=== PATIENT | female | born 1975 | race Caucasian/White ===

== ENCOUNTER 2017-03-02 20:23 | Emergency (ER) | payer OTHER ==
--- NOTE | 2017-03-02 21:07 | ED CLINICAL REPORT ---
Clinical Report - Physicians/Mid Levels [facility] [address] [place] [address] 03/02/2017 20:26 Patient: ROBINSON KENNY Time Seen: 20:54 Mar 02 2017. Arrived- By private vehicle. Historian- patient. HISTORY OF PRESENT ILLNESS Chief Complaint: SORE THROAT. 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 Pain described as mild. No mouth sores, nasal discharge or congestion or ear pain. (patient with a sore throat and mild cough, chills last 7 days. No sick contacts at home. No reported fevers. No nausea or vomiting or emesis. No diff swallowing liquids. Has taken Advil at home.). REVIEW OF SYSTEMS No fever, chest pain, nausea, diarrhea or abdominal pain. No vomiting. She has had a cough. All systems otherwise negative, except as recorded above. PAST HISTORY Problems: UTI - Urinary Tract Infection. Melanocytic nevus of skin. Additional Surgeries: no known surgeries. Medications: None. Allergies: No Known Drug Allergy. SOCIAL HISTORY Never smoker. Alcohol use. No drug use. ADDITIONAL NOTES The nursing notes have been reviewed. PHYSICAL EXAM Vital Signs: 03/02/2017 20:31 BP: 134/86. HR: 75. RR: 18. O2 saturation: 100%. Temp: 97.8 F. Pain level now: 5/10. Appearance: Alert. Head: Normal external inspection. Eyes: Conjunctivae and eyelids normal. ENT: Nose normal. Pharynx normal. Lips normal. Gums normal. No trismus present. Uvula midline. No tonsillar exudate or dental tenderness. Neck: Trachea midline. No adenopathy. No thyromegaly. CVS: Normal heart rate and rhythm. Heart sounds normal. Pulses normal. No cardiac murmur. PMI not displaced laterally. Respiratory: No respiratory distress. Breath sounds normal. Chest nontender. Abdomen: Soft. Skin: Normal skin color. LABS, X-RAYS, AND EKG Laboratory Tests: Culture, Strep Screen: (KAREN: 03/02/2017 20:38) ( MsgRcvd 03/02/2017 21:05) Final results Test Result Flag Units (Reference) RAPID STREP SCREEN - THROAT DATE: 03/02/17 NEGATIVE SCREEN: RAPID STREP SCREEN NEGATIVE; CONFIRMATION TO FOLLOW . PROGRESS AND PROCEDURES Course of Care: Patient with negative rapid strep. Uvula midline, no exudate. No lymphadenopathy. No erythema. Patient to follow up outpatient. Suspect viral etiology. 03/02/2017 21:14 RR: 18. Ricketts-Carrasco pain scale: 2/10. Patient is stable. Patient/family counseled. Disposition: Discharged. CLINICAL IMPRESSION Pharyngitis INSTRUCTIONS Rest. Drink plenty of fluids. (warm salt water rinses culture pending). Prescription Medications: Ibuprofen 600 mg tablets: take 1 tablet orally every 6 hours for 5 days, as needed for pain, swelling or fever. Dispense fifteen (15). No refill. OTC Medications: Tylenol 500 mg (available over the counter): take 1 orally every 6 hours as needed for fever or pain. Dispense fifteen (15). One refill. Substitution is permissible. (Electronically signed by Brittney Aaron P.A.-C 03/02/2017 21:53)
--- NOTE | 2017-03-02 21:07 | ED NURSING NOTES ---
Clinical Report - Nurses [facility] [address] [place] [address] 03/02/2017 20:26 Patient: ROBINSON KENNY TRIAGE Triage time 20:32. Acuity: LEVEL 4. Chief Complaint: SORE THROAT. Alert. ALFONZO COMA SCORE: [place] Coma Scale: 15- eyes open spontaneously (4); best verbal response- oriented x 4 (5); best motor response- obeys commands (6). --20:34 Nikita Melgoza R.N. 20:31 03/02/17. BP: 134/86. HR: 75. RR: 18 (regular and unlabored). O2 saturation: 100% on room air. Temp: 97.8 F (oral). Pain level now: 5/10. --20:34 Nikita Melgoza R.N. Weight: 79.3 kg stated. Height/Length: 69 inches Per Patient. BMI: 25.8. --20:32 Nikita Melgoza R.N. Medications None. --20:31 Nikita Melgoza R.N. Allergies No Known Drug Allergy. --20:31 Nikita Melgoza R.N. History Arrived by private vehicle. Historian: patient. Accompanied by friend. Onset. (1 weeks). SOCIAL HX: Never smoker. Occasional alcohol use. No drug use. ( denies SI/HI). ABUSE ASSESSMENT: No report of abuse. SELF HARM ASSESSMENT: A self harm assessment was performed. The patient answered "no" to the question "Do you have thoughts of harming or killing yourself?" and "Are you here because you tried to hurt yourself?". --20:34 Nikita Melgoza R.N. PROBLEMS: Melanocytic nevus of skin. --20:32 Nikita Melgoza R.N. ADDITIONAL SURGERIES: no known surgeries. Interventions ID band on patient. To treatment room. --20:34 Nikita Melgoza R.N. PHYSICAL ASSESSMENT Ambulatory to room. GENERAL / NEURO / PSYCH: Alert. Oriented X 4. Appears in no acute distress. Does not appear anxious or in distress. HEENT: Pharyngeal erythema. Voice within normal limits. Mucous membranes are pink. RESPIRATORY: Respirations not labored. SKIN: Skin is warm and dry. --20:37 Nikita Melgoza R.N. NURSING PROGRESS NOTES Reassurance given. Two patient identifiers checked. Call light placed in reach. Side rails up x 1. Bed placed in lowest position. Brakes of bed on. Patient ready for evaluation- chart flagged. Patient waiting for evaluation. --20:37 Nikita Melgoza R.N. 21:11 03/02/2017 Dexamethasone (Dexamethasone) PO 8 mg given. Allergies verified and confirmed 5 rights. --21:16 Nikita Melgoza R.N. DISPOSITION / DISCHARGE Departure time: 21:15. Condition at departure: stable. No learning barriers present. Discharge instructions provided and reviewed with the patient. Reviewed warnings. Reviewed medication(s) side effects, precautions, dosing and course information. Prescription(s) given to the patient. Treatments reviewed. Reviewed referrals for followup. Work note given. Patient and review engineer verbalized understanding. Written instructions provided in Wallisian. The patient was discharged home and accompanied by review engineer. She left the Emergency Department ambulatory and via private vehicle. Patient driving. --21:15 Nikita Melgoza R.N. 21:14 03/02/17. RR: 18. Ricketts-Carrasco pain scale: 2/10. --21:15 Nikita Melgoza R.N. 20:31 03/02/17. BP: 134/86. HR: 75. RR: 18 (regular and unlabored). O2 saturation: 100% on room air. Temp: 97.8 F (oral). Pain level now: 10. --21:15 Nikita Melgoza R.N. Locked/Released at 03/02/2017 21:17 by Nikita Melgoza R.N.
--- NOTE | 2017-03-02 21:07 | ED ORDER SUMMARY ---
..... Patient: ROBINSON KENNY OrderSheet [facility] VisitID: [id number] [address] [place] [address] 42y, F Registration Date/Time: 03/02/2017 ORDER SHEET Weight: 79.3 kg (stated) Allergies: No Known Drug Allergy GENERAL ORDERS: Culture, Strep Screen Urgent (20:40 03/02/2017 Lety Hameed.A.-C) (20:41 DDavis R.N.) MEDICATION ORDERS: Dexamethasone PO 8 mg (NOW) (21:06 03/02/2017 Lety Hameed.A.-C) (Ack 21:08 DDavis R.N.) (21:16 DDavis R.N.) IV FLUIDS: ORDER SHEET NOTES: [Electronically signed by Nikita Melgoza R.N. (21:17 03/02/2017)] [Electronically signed by Brittney Aaron P.A.-C (21:53 03/02/2017)] [Electronically locked/signed by Nikita Melgoza R.N. (21:17 03/02/2017)]
--- NOTE | 2017-03-02 21:07 | ED CLINICAL REPORT ---
Clinical Report - Physicians/Mid Levels [facility] [address] [place] [address] 03/02/2017 20:26 Patient: ROBINSON KENYN Time Seen: 20:54 Mar 02 2017. Arrived- By private vehicle. Historian- patient. HISTORY OF PRESENT ILLNESS Chief Complaint: SORE THROAT. 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 Pain described as mild. No mouth sores, nasal discharge or congestion or ear pain. (patient with a sore throat and mild cough, chills last 7 days. No sick contacts at home. No reported fevers. No nausea or vomiting or emesis. No diff swallowing liquids. Has taken Advil at home.). REVIEW OF SYSTEMS No fever, chest pain, nausea, diarrhea or abdominal pain. No vomiting. She has had a cough. All systems otherwise negative, except as recorded above. PAST HISTORY Problems: UTI - Urinary Tract Infection. Melanocytic nevus of skin. Additional Surgeries: no known surgeries. Medications: None. Allergies: No Known Drug Allergy. SOCIAL HISTORY Never smoker. Alcohol use. No drug use. ADDITIONAL NOTES The nursing notes have been reviewed. PHYSICAL EXAM Vital Signs: 03/02/2017 20:31 BP: 134/86. HR: 75. RR: 18. O2 saturation: 100%. Temp: 97.8 F. Pain level now: 5/10. Appearance: Alert. Head: Normal external inspection. Eyes: Conjunctivae and eyelids normal. ENT: Nose normal. Pharynx normal. Lips normal. Gums normal. No trismus present. Uvula midline. No tonsillar exudate or dental tenderness. Neck: Trachea midline. No adenopathy. No thyromegaly. CVS: Normal heart rate and rhythm. Heart sounds normal. Pulses normal. No cardiac murmur. PMI not displaced laterally. Respiratory: No respiratory distress. Breath sounds normal. Chest nontender. Abdomen: Soft. Skin: Normal skin color. LABS, X-RAYS, AND EKG Laboratory Tests: Culture, Strep Screen: (KAREN: 03/02/2017 20:38) ( MsgRcvd 03/02/2017 21:05) Final results Test Result Flag Units (Reference) RAPID STREP SCREEN - THROAT DATE: 03/02/17 NEGATIVE SCREEN: RAPID STREP SCREEN NEGATIVE; CONFIRMATION TO FOLLOW . PROGRESS AND PROCEDURES Course of Care: Patient with negative rapid strep. Uvula midline, no exudate. No lymphadenopathy. No erythema. Patient to follow up outpatient. Suspect viral etiology. 03/02/2017 21:14 RR: 18. Ricketts-Carrasco pain scale: 2/10. Patient is stable. Patient/family counseled. Disposition: Discharged. CLINICAL IMPRESSION Pharyngitis INSTRUCTIONS Rest. Drink plenty of fluids. (warm salt water rinses culture pending). Prescription Medications: Ibuprofen 600 mg tablets: take 1 tablet orally every 6 hours for 5 days, as needed for pain, swelling or fever. Dispense fifteen (15). No refill. OTC Medications: Tylenol 500 mg (available over the counter): take 1 orally every 6 hours as needed for fever or pain. Dispense fifteen (15). One refill. Substitution is permissible. (Electronically signed by Brittney Aaron P.A.-C 03/02/2017 21:53)
--- NOTE | 2017-03-02 21:07 | ED NURSING NOTES ---
Clinical Report - Nurses [facility] [address] [place] [address] 03/02/2017 20:26 Patient: ROBINSON KENNY TRIAGE Triage time 20:32. Acuity: LEVEL 4. Chief Complaint: SORE THROAT. Alert. ALFONZO COMA SCORE: [place] Coma Scale: 15- eyes open spontaneously (4); best verbal response- oriented x 4 (5); best motor response- obeys commands (6). --20:34 Nikita Melgoza R.N. 20:31 03/02/17. BP: 134/86. HR: 75. RR: 18 (regular and unlabored). O2 saturation: 100% on room air. Temp: 97.8 F (oral). Pain level now: 5/10. --20:34 Nikita Melgoza R.N. Weight: 79.3 kg stated. Height/Length: 69 inches Per Patient. BMI: 25.8. --20:32 Nikita Melgoza R.N. Medications None. --20:31 Nikita Melgoza R.N. Allergies No Known Drug Allergy. --20:31 Nikita Melgoza R.N. History Arrived by private vehicle. Historian: patient. Accompanied by friend. Onset. (1 weeks). SOCIAL HX: Never smoker. Occasional alcohol use. No drug use. ( denies SI/HI). ABUSE ASSESSMENT: No report of abuse. SELF HARM ASSESSMENT: A self harm assessment was performed. The patient answered "no" to the question "Do you have thoughts of harming or killing yourself?" and "Are you here because you tried to hurt yourself?". --20:34 Nikita Melgoza R.N. PROBLEMS: Melanocytic nevus of skin. --20:32 Nikita Melgoza R.N. ADDITIONAL SURGERIES: no known surgeries. Interventions ID band on patient. To treatment room. --20:34 Nikita Melgoza R.N. PHYSICAL ASSESSMENT Ambulatory to room. GENERAL / NEURO / PSYCH: Alert. Oriented X 4. Appears in no acute distress. Does not appear anxious or in distress. HEENT: Pharyngeal erythema. Voice within normal limits. Mucous membranes are pink. RESPIRATORY: Respirations not labored. SKIN: Skin is warm and dry. --20:37 Nikita Melgoza R.N. NURSING PROGRESS NOTES Reassurance given. Two patient identifiers checked. Call light placed in reach. Side rails up x 1. Bed placed in lowest position. Brakes of bed on. Patient ready for evaluation- chart flagged. Patient waiting for evaluation. --20:37 Nikita Melgoza R.N. 21:11 03/02/2017 Dexamethasone (Dexamethasone) PO 8 mg given. Allergies verified and confirmed 5 rights. --21:16 Nikita Melgoza R.N. DISPOSITION / DISCHARGE Departure time: 21:15. Condition at departure: stable. No learning barriers present. Discharge instructions provided and reviewed with the patient. Reviewed warnings. Reviewed medication(s) side effects, precautions, dosing and course information. Prescription(s) given to the patient. Treatments reviewed. Reviewed referrals for followup. Work note given. Patient and pharmacy sales assistant verbalized understanding. Written instructions provided in Belgian. The patient was discharged home and accompanied by pharmacy sales assistant. She left the Emergency Department ambulatory and via private vehicle. Patient driving. --21:15 Nikita Melgoza R.N. 21:14 03/02/17. RR: 18. Ricketts-Carrasco pain scale: 2/10. --21:15 Nikita Melgoza R.N. 20:31 03/02/17. BP: 134/86. HR: 75. RR: 18 (regular and unlabored). O2 saturation: 100% on room air. Temp: 97.8 F (oral). Pain level now: 10. --21:15 Nikita Melgoza R.N. Locked/Released at 03/02/2017 21:17 by Nikita Melgoza R.N.
--- NOTE | 2017-03-02 21:07 | ED ORDER SUMMARY ---
..... Patient: ROBINSON KENNY OrderSheet [facility] VisitID: [id number] [address] [place] [address] 42y, F Registration Date/Time: 03/02/2017 ORDER SHEET Weight: 79.3 kg (stated) Allergies: No Known Drug Allergy GENERAL ORDERS: Culture, Strep Screen Urgent (20:40 03/02/2017 Lety Hameed.A.-C) (20:41 DDavis R.N.) MEDICATION ORDERS: Dexamethasone PO 8 mg (NOW) (21:06 03/02/2017 Lety Hameed.A.-C) (Ack 21:08 DDavis R.N.) (21:16 DDavis R.N.) IV FLUIDS: ORDER SHEET NOTES: [Electronically signed by Nikita Melgoza R.N. (21:17 03/02/2017)] [Electronically signed by Brittney Aaron P.A.-C (21:53 03/02/2017)] [Electronically locked/signed by Nikita Melgoza R.N. (21:17 03/02/2017)]
--- NOTE | 2017-03-02 21:54 | ED DISCHARGE INSTRUCTIONS ---
Patient: ROBINSON KENNY General Instructions [facility] VisitID: [id number] [place] [address] 42y, F Registration Date/Time: 03/02/2017 Pharyngitis INSTRUCTIONS Rest. Drink plenty of fluids. (warm salt water rinses culture pending). Prescription Medications: Ibuprofen 600 mg tablets: take 1 tablet orally every 6 hours for 5 days, as needed for pain, swelling or fever. Dispense fifteen (15). No refill. OTC Medications: Tylenol 500 mg (available over the counter): take 1 orally every 6 hours as needed for fever or pain. Dispense fifteen (15). One refill. Substitution is permissible. ADDITIONAL INFORMATION Viral Pharyngitis (Sore Throat) Your throat pain is due to an infection called "Viral Pharyngitis", commonly known as "Sore Throat". This is a contagious illness. It is spread through the air by coughing, kissing or by touching others after touching your mouth or nose. Symptoms include throat pain worse with swallowing, aching all over, headache and fever. Unlike strep throat, which is a bacterial infection, this illness does not require treatment with an antibiotic. Home Care: If your symptoms are severe, rest at home for the first 2-3 days. Children: Use acetaminophen (Tylenol) for fever, fussiness or discomfort. In infants over six months of age, you may use ibuprofen (Children's Motrin) instead of Tylenol. [NOTE: If your child has chronic liver or kidney disease or ever had a stomach ulcer or GI bleeding, talk with your maikel doctor before using these medicines.] (Aspirin should never be used in anyone under 18 years of age who is ill with a fever. It may cause severe liver damage.) Adults: You may use acetaminophen (Tylenol) or ibuprofen (Motrin, Advil) to control pain or fever, unless another medicine was prescribed. [NOTE: If you have chronic liver or kidney disease or ever had a stomach ulcer or GI bleeding, talk with your doctor before using these medicines.] Throat lozenges or sprays (Chloraseptic and others) will reduce pain. Gargling with warm salt water will also reduce throat pain. Dissolve 1/2 teaspoon of salt in 1 glass of warm water. This is especially useful just before meals. Follow Up with your doctor or as directed by our staff if you are not improving over the next week. Get Prompt Medical Attention if any of the following occur: Fever over 100.5F (38.0C) oral, or over 101.5F (38.6C) rectal for more than three days New or worsening ear pain, sinus pain or headache Painful lumps in the back of your neck Unable to swallow liquids or open your mouth wide due to throat pain Trouble breathing or noisy breathing Muffled voice New rash You have been given the following additional information: Pharyngitis, Viral Rest. (Electronically signed by Brittney Aaron P.A.-C 03/02/2017 21:53)
--- NOTE | 2017-03-02 21:54 | ED MAR SUMMARY ---
..... Medication Administration Record [facility] [address] [place] [address] Patient: ROBINSON KENNY Visit ID: [id number] 42y, F Weight: 79.3 kg Height/Length: 69 in BMI: 25.8 ALLERGIES: No Known Drug Allergy Given 21:11 03/02/2017 Nikita Melgoza R.N. Medication Administered: DEXAMETHASONE [PO] (DEXAMETHASONE), Dose: 8 mg PO. Medication Ordered: Dexamethasone PO 8 mg (NOW).
--- NOTE | 2017-03-02 21:54 | ED MED RECONCILIATION SUMMARY ---
Patient: ROBINSON KENNY Medication Reconciliation Report [facility] VisitID: [id number] [address] [place] [address] 42y, F Registration Date/Time: 03/02/2017 Weight: 79.3 kg Height/Length: 69 in. BMI: 25.8 ALLERGIES: No Known Drug Allergy The patient's Home Medications are listed below: NONE. The source(s) of the original Home Medication information: Not obtained. The following Medications were given to the patient in the Emergency Department: Dexamethasone [PO] PO 8 mg, administered: 03/02/2017 9:11:00 PM The following Medications were prescribed to the patient: Ibuprofen 600 mg tablets: take 1 tablet orally every 6 hours for 5 days, as needed for pain, swelling or fever. Dispense fifteen (15). No refill. -- Brittney Aaron, P.A.-C Tylenol 500 mg (available over the counter): take 1 orally every 6 hours as needed for fever or pain. Dispense fifteen (15). One refill. Substitution is permissible. -- Brittney Aaron, P.A.-C
--- NOTE | 2017-03-02 21:54 | ED MAR SUMMARY ---
..... Medication Administration Record [facility] [address] [place] [address] Patient: ROBINSON KENNY Visit ID: [id number] 42y, F Weight: 79.3 kg Height/Length: 69 in BMI: 25.8 ALLERGIES: No Known Drug Allergy Given 21:11 03/02/2017 Nikita Melgoza R.N. Medication Administered: DEXAMETHASONE [PO] (DEXAMETHASONE), Dose: 8 mg PO. Medication Ordered: Dexamethasone PO 8 mg (NOW).
--- NOTE | 2017-03-02 21:54 | ED MED RECONCILIATION SUMMARY ---
Patient: ROBINSON KENNY Medication Reconciliation Report [facility] VisitID: [id number] [address] [place] [address] 42y, F Registration Date/Time: 03/02/2017 Weight: 79.3 kg Height/Length: 69 in. BMI: 25.8 ALLERGIES: No Known Drug Allergy The patient's Home Medications are listed below: NONE. The source(s) of the original Home Medication information: Not obtained. The following Medications were given to the patient in the Emergency Department: Dexamethasone [PO] PO 8 mg, administered: 03/02/2017 9:11:00 PM The following Medications were prescribed to the patient: Ibuprofen 600 mg tablets: take 1 tablet orally every 6 hours for 5 days, as needed for pain, swelling or fever. Dispense fifteen (15). No refill. -- Brittney Aaron, P.A.-C Tylenol 500 mg (available over the counter): take 1 orally every 6 hours as needed for fever or pain. Dispense fifteen (15). One refill. Substitution is permissible. -- Brittney Aaron, P.A.-C
== END 2017-03-02 21:21 | disposition home or self-care (01) ==
LOC: ED SRH 20:23
DX: J02.9 Acute pharyngitis, unspecified (principal)
CPT/HCPCS: 90154; 90159